=== PATIENT | male | born 1955 | race African-American/Black ===

== ENCOUNTER 2020-07-17 11:18 | Inpatient (IN) | payer OTHER ==
[2020-07-17] MEDS ORDERED: ASPIRIN 81 MG CHEWABLE TABLETS PO ONE (11:45)
[2020-07-17] MEDS ORDERED: NITROGLYCERIN SUBLINGUAL 1/150 0.4 MG TAB SL ONE (11:50)
[2020-07-17] MEDS ORDERED: ASPIRIN 81 MG CHEWABLE TABLETS ONE (12:01)
[2020-07-17 12:21] LABS: BASO % 0.2 % (0-2.0); EOS % 2.7 % (0-4.5); HEMATOCRIT 40.5 % (35.4-49); HEMOGLOBIN 13.8 GM/dL (11.7-16.9); LYMPH % 21.5 % (8-40); MCH 31.5 pg (25.7-33.7); MCHC 34.1 g/dl (32.0-35.9); MEAN CELL VOLUME 92.3 fl (80-96); MONO % 15.1 % (3.8-10.2); NEUT % 60.5 % (42.8-82.8); PLATELET COUNT 251 K/MM3 (134-434); RBC 4.39 M/mm3 (4.00-5.60); RDW 13.9 % (11.9-15.9)
[2020-07-17 12:30] LABS: INR 0.94 (0.83-1.09); PROTHROMBIN TIME (PATIENT) 11.4 SEC (9.7-13.0)
[2020-07-17 12:33] LABS: ACTIVATED PTT 33.1 SECONDS (25.2-36.5)
[2020-07-17 12:41] LABS: CHLORIDE 109 mmol/L (98-107); POTASSIUM 4.4 mmol/L (3.5-5.1); SODIUM 141 mmol/L (136-145)
[2020-07-17 12:42] LABS: ALBUMIN 3.4 g/dl (3.4-5.0)
[2020-07-17 12:44] LABS: ANION GAP 7 MMOL/L (8-16); BLOOD UREA NITROGEN 15.5 mg/dL (7-18); CO2 24 mmol/L (21-32); GLUCOSE,RANDOM 89 mg/dL (74-106); MAGNESIUM 1.9 mg/dL (1.8-2.4)
[2020-07-17 12:45] LABS: SGOT/AST 16 U/L (15-37); SGPT/ALT 16 U/L (13-61)
[2020-07-17 12:47] LABS: BILIRUBIN,TOTAL 0.2 mg/dL (0.2-1)
[2020-07-17 12:49] LABS: ALK PHOS 75 U/L (45-117)
[2020-07-17 12:50] LABS: N-TERMINAL BNP 8.3 pg/ml (5-125)
[2020-07-17] MEDS ORDERED: ACETAMINOPHEN 1000 MG/100 ML VIAL (NON FORMULARY) IVPB PRN (17:25)
[2020-07-17] MEDS ORDERED: LIDOCAINE 5% TOPICAL PATCH ONE (20:49)
[2020-07-17] MEDS: LIDOCAINE 5% TOPICAL PATCH TP SCH (21:01)
[2020-07-17] MEDS: NICOTINE 7 MG/24 HOURS TOPICAL PATCH TD SCH (21:01)
[2020-07-17] MEDS: LIDOCAINE PATCH REMOVAL MC SCH (22:03)
[2020-07-17 22:56] LABS: URINE APPEARANCE CLEAR; URINE BILIRUBIN NEGATIVE (NEGATIVE); URINE COLOR YELLOW; URINE GLUCOSE (UA) NEGATIVE (NEGATIVE)
[2020-07-17 22:57] LABS: URINE KETONE NEGATIVE (NEGATIVE); URINE LEUK ESTERASE NEGATIVE (NEGATIVE); URINE NITRITE POSITIVE (NEGATIVE); URINE PROTEIN NEGATIVE (NEGATIVE); URINE UROBILINOGEN 0.2 mg/dL (0.2-1.0)
[2020-07-17 23:00] LABS: EPI CELLS 9.7 /uL (0-25.1); HYALINE CASTS 0.38 /uL (0-3.1); URINE BACTERIA 3406.6 /uL (0-1359); URINE RBC 11.1 /uL (0-23.9); URINE WBC 97.8 /uL (0-25.8)
[2020-07-17 23:15] LABS: YEAST NONE SEEN (NEGATIVE)
[2020-07-18 00:32] LABS: CHOLESTEROL 168 mg/dL (50-200); TRIGLYCERIDES 143 mg/dL (0-150)
[2020-07-18 00:34] LABS: LDL CHOLESTEROL (ONLY SJRH) 100 mg/dL (5-100)
[2020-07-18 00:35] LABS: HDL CHOLESTEROL 54 mg/dL (40-60)
[2020-07-18 08:19] LABS: HEMATOCRIT 41.7 % (35.4-49); MCH 30.7 pg (25.7-33.7); MCHC 33.4 g/dl (32.0-35.9); MEAN CELL VOLUME 91.7 fl (80-96); MEAN PLT VOLUME 8.9 fl (7.5-11.1); PLATELET COUNT 248 K/MM3 (134-434); RBC 4.55 M/mm3 (4.00-5.60); WHITE BLOOD COUNT 4.8 K/mm3 (4.0-10.0)
[2020-07-18 08:55] LABS: BLOOD UREA NITROGEN 15.7 mg/dL (7-18); CALCIUM 9.2 mg/dL (8.5-10.1)
[2020-07-18 08:57] LABS: MAGNESIUM 2.1 mg/dL (1.8-2.4)
[2020-07-18 08:59] LABS: PHOSPHOROUS 3.6 mg/dL (2.5-4.9)
[2020-07-18] MEDS: ENOXAPARIN NA (PORCINE) 40 MG/0.4 ML DISP.SYRIN SQ SCH (09:18)
[2020-07-18] MEDS ORDERED: predniSONE 20 MG TABLET (UD) PO ONE (10:13)
[2020-07-18] MEDS: LIDOCAINE 5% TOPICAL PATCH TP SCH (10:21)
[2020-07-18] MEDS: NICOTINE 7 MG/24 HOURS TOPICAL PATCH TD SCH (10:23)
[2020-07-18] MEDS ORDERED: predniSONE 20 MG TABLET (UD) ONE (14:23)
[2020-07-18] MEDS ORDERED: ALBUTEROL SO4 2.5/IPRATROPIUM 0.5 INH SOL 3 ML VIAL.NEB. NEB ONE ×2 (15:45→17:35)
[2020-07-18 20:52] VITALS: BMI 25.0
[2020-07-18] MEDS ORDERED: FLU VACCINE (FLULAVAL) PF 60 MCG/0.5 ML SYRINGE 2020-2021 IM ONE (20:52)
[2020-07-18] MEDS: LIDOCAINE PATCH REMOVAL MC SCH (21:44)
[2020-07-19 08:35] LABS: POTASSIUM 4.5 mmol/L (3.5-5.1)
[2020-07-19 09:02] LABS: BLOOD UREA NITROGEN 17.4 mg/dL (7-18); CALCIUM 9.7 mg/dL (8.5-10.1)
[2020-07-19 09:07] VITALS: BP 124/78; PULSE 71; TEMP 98.1
[2020-07-19] MEDS: NICOTINE 7 MG/24 HOURS TOPICAL PATCH TD SCH (09:09)
[2020-07-19] MEDS: ENOXAPARIN NA (PORCINE) 40 MG/0.4 ML DISP.SYRIN SQ SCH (09:09)
[2020-07-19] MEDS: LIDOCAINE 5% TOPICAL PATCH TP SCH (09:09)
[2020-07-19] MEDS ORDERED: predniSONE 20 MG TABLET (UD) PO SCH (10:00)
[2020-07-19] MEDS ORDERED: REGADENOSON 0.4 MG/5 ML PRE-FILLED SYRINGE IVPUSH ONE ×2 (11:23→11:30)
[2020-07-19] MEDS ORDERED: ATORVASTATIN CA 10 MG TABLET (FP) PO ONE (13:53)
[2020-07-20] MEDS ORDERED: ATORVASTATIN CA 10 MG TABLET (FP) PO SCH (22:00)
== END 2020-07-19 17:02 | disposition home or self-care (01) | DRG 140 ==
LOC: JER 11:18 → JERBED 17:03 → J4W 07-18 18:58
PROVIDERS: ADMIT Family Medicine; ATTEND Internal Medicine
DX: J44.1 Chronic obstructive pulmonary disease with (acute) exacerbation (principal); F14.10 Cocaine abuse, uncomplicated; R91.1 Solitary pulmonary nodule; M54.9 Dorsalgia, unspecified; G89.29 Other chronic pain; F17.210 Nicotine dependence, cigarettes, uncomplicated; J98.11 Atelectasis; F19.10 Other psychoactive substance abuse, uncomplicated; Z79.1 Long term (current) use of non-steroidal anti-inflammatories (NSAID)
CPT/HCPCS: 36415; 71046-TC-FY; 71275-TC; 78452-TC; 80048; 80053; 80061; 81003; 82550; 82553; 83036; 83721; 83735; 83880; 84100; 84443; 84484; 85025; 85027; 85379; 85610; 85730; 93005; 93010; 93017; 93306-TC; 99285-25; A9502; C9803; G0008; J2785; Q2036; Q9967; U0003